=== PATIENT | male | born 1960 | race Caucasian/White ===

== ENCOUNTER 2020-08-26 11:56 | Emergency (ER) | payer OTHER, SELFPAY ==
[2020-08-26 12:10] VITALS: BP 199/129; PULSE 83; RESP 14; TEMP 36.7; O2SAT 95
--- NOTE | 2020-08-26 12:18 | DI.RAD.S_ITS ---
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 COMPARISON: None. FINDINGS: Bones: No fractures or dislocations. No suspicious bony lesions. Soft tissues: Soft tissue swelling and laceration along the radial aspect of the distal forearm. No radiopaque foreign body identified. IMPRESSION: Soft tissue injury as above. No fracture. No radiopaque foreign body. Dictated by: Lucas Hamlin M.D. on 08/26/2020 at 13:40 Approved by: Lucas Hamlin M.D. on 08/26/2020 at 13:42
[2020-08-26] MEDS: ACETAMINOPHEN 325 MG TABLET 975 MG PO (12:21)
--- NOTE | 2020-08-26 14:53 | ED_ITS ---
HPI - Skin/Abscess/Foreign Bdy <BEHZAD Alonso - Last Filed: 08/26/20 21:58> General Chief complaint: Skin/Abscess/Foreign Body Stated complaint: stump grinder operator external tool, wound right wrist Time Seen by Provider: 08/26/20 14:34 Source: patient Mode of arrival: Ambulatory Limitations: no limitations History of Present Illness HPI narrative: This is a 60-year-old male, former smoker, who has past medical history significant for MS presents to ED after the injury on dominant hand, right dorsal aspect on lower forearm from a tree stump grinder operator external tool at 1200. Patient is unsure of last tetanus immunization. Patient reports intact sensation and is able to move her fingers without difficulty. Related Data Previous Rx's Medication Instructions Recorded cephalexin [Keflex] 500 mg PO Q6H 7 Days #28 cap 08/26/20 Allergies Allergy/AdvReac Type Severity Reaction Status Date / Time No Known Drug Allergies Allergy Verified 08/26/20 12:17 Review of Systems <BEHZAD Alonso - Last Filed: 08/26/20 21:58> Review of Systems Narrative: General: Denies fever, chills, fatigue, malaise, sweats. Respiratory: Denies dyspnea, cough, wheezing, hemoptysis, sputum. Cardiovascular: Denies chest pain, palpitations, orthopnea, edema. Gastrointestinal: Denies nausea, vomiting, abdominal pain, diarrhea, constipation, melena. Musculoskeletal: See HPI Skin: See HPI Patient History <BEHZAD Alonso - Last Filed: 08/26/20 21:58> Social History Smoking Status: Former smoker Smoking Status: Former smoker alcohol intake frequency: 0-2 drinks per day Substance Use Type: does not use Exam <BEHZAD Alonso - Last Filed: 08/26/20 21:58> Narrative Exam Narrative: General appearance: well developed, well nourished, in no acute distress. Head: normocephalic, atraumatic, no scalp lesions, non-tender. ENT: Hearing grossly intact. Nose without bleeding, purulent discharge. Airway patent. Neck/Thyroid: neck supple, full range of motion, no visible masses or meningeal signs. No JVD, non-tender without lymphadenopathy. Skin: 4 x 5 cm large avulsion on right dorsal aspect of lower arm. Ligaments visualized with movement of right fingers. Warm and dry and appropriate color for ethnicity. Heart: no clubbing, no cyanosis, no edema. S1 and S2 normal. RRR w/o murmurs, clicks, or bruits. Lungs: Breathing even and unlabored. No stridor. No accessory muscles used. Able to speak in full sentences. Chest: normal shape and expansion. Abdomen: non-obese, non-distended. Neurologic: alert and oriented. Cognitive exam, [employer] and PNS grossly intact on informal exam. Psych: good eye contact, normal affect. Extremity: Right hand/fingers intact sensation and is able to flex, extend, supinate and pronate. Able to see intact tendons on right forearm. Initial Vital Signs Initial Vital Signs: Vital Signs Temperature 98.1 F 08/26/20 12:10 Pulse Rate 83 08/26/20 12:10 Respiratory Rate 14 08/26/20 12:10 Blood Pressure 199/129 H 08/26/20 12:10 Pulse Oximetry 95 08/26/20 12:10 <Jessie Barnes DO - Last Filed: 08/31/20 07:26> Initial Vital Signs Initial Vital Signs: Vital Signs Temperature 98.1 F 08/26/20 12:10 Pulse Rate 83 08/26/20 12:10 Respiratory Rate 14 08/26/20 12:10 Blood Pressure 199/129 H 08/26/20 12:10 Pulse Oximetry 95 08/26/20 12:10 Procedures <BEHZAD Alonso - Last Filed: 08/26/20 21:58> Laceration Repair Laceration 1: Site: upper extremity Side (If applicable): right Size (cm): 5 Description: flap and irregular Depth: simple, single layer and involves tendon Local Anesthetic: lidocaine 1% and with bicarb Amount of anesthesia used (mL): 6 Pre-repair: wound explored, irrigated extensively and extensive debridement Skin layer closed with: nylon Size (cm): 4-0 Number of sutures: 5 Orthopedic Splinting/Casting Injury #1: Side: right Upper Extremity Injury Location: forearm Upper Extremity Immobilizer: volar splint Post splinting neuro exam: intact Post splinting vascular exam: intact Placed by: Nursing Scores <HAMILTON AlonsoP - Last Filed: 08/26/20 21:58> GCS Angelique coma scale eye opening: Spontaneous Angelique coma scale verbal response: Orientated Angelique coma scale motor response: Obey commands Angelique coma scale total score: 15 qSOFA Altered Mental Status (GCS <15): No Respiratory rate greater than/equal to 22: No Systolic blood pressure less than or equal to 100: No qSOFA Total: 0 0-1 Not High Risk 1-3 High risk Course <Kofi RubalcavaHAMILTONP - Last Filed: 08/26/20 21:58> Orders Ordered: Discontinued Medications Acetaminophen (Tylenol) 975 mg PO NOW ONE Stop: 08/26/20 12:19 Last Admin: 08/26/20 12:21 Dose: 975 mg Documented by: PAU Bacitracin (Bacitracin) 2 applic TOP NOW ONE Stop: 08/26/20 16:18 Last Admin: 08/26/20 16:26 Dose: 2 applic Documented by: KANIKA Diphtheria/Tetanus/Acell Pertussis (Adacel) 0.5 ml IM .ONCE ONE Stop: 08/26/20 14:54 Last Admin: 08/26/20 15:18 Dose: 0.5 ml Documented by: KANIKA Cefazolin Sodium/Dextrose (Ancef) 1 gm in 50 mls @ 200 mls/hr IV NOW ONE Stop: 08/26/20 15:22 Last Infusion: 08/26/20 15:55 Dose: 0 mls/hr Documented by: Admin: 08/26/20 15:20 Dose: 200 mls/hr Documented by: KANIKA Lidocaine/Sodium Bicarbonate (Buffered Lidocaine 10 Ml Syr) 10 ml INJ NOW ONE Stop: 08/26/20 15:28 Last Admin: 08/26/20 15:35 Dose: 10 ml Documented by: KANIKA Consultations Consultation #1: Dr. Ellis consulted with physical findings, x-ray test results. He recommended IV antibiotic medications, tetanus update, volar splint and to follow-up at clinic for re-evaluation. Time: 15:34 Vital Signs Vital signs: Vital Signs - 8 hr 08/26/20 16:42 Pulse Rate 86 Respiratory Rate 20 Blood Pressure 182/115 H Pulse Oximetry 96 <Jessie Barnes DO - Last Filed: 08/31/20 07:26> Orders Ordered: Discontinued Medications Acetaminophen (Tylenol) 975 mg PO NOW ONE Stop: 08/26/20 12:19 Last Admin: 08/26/20 12:21 Dose: 975 mg Documented by: PAU Bacitracin (Bacitracin) 2 applic TOP NOW ONE Stop: 08/26/20 16:18 Last Admin: 08/26/20 16:26 Dose: 2 applic Documented by: KANIKA Diphtheria/Tetanus/Acell Pertussis (Adacel) 0.5 ml IM .ONCE ONE Stop: 08/26/20 14:54 Last Admin: 08/26/20 15:18 Dose: 0.5 ml Documented by: KANIKA Cefazolin Sodium/Dextrose (Ancef) 1 gm in 50 mls @ 200 mls/hr IV NOW ONE Stop: 08/26/20 15:22 Last Infusion: 08/26/20 15:55 Dose: 0 mls/hr Documented by: Admin: 08/26/20 15:20 Dose: 200 mls/hr Documented by: KANIKA Lidocaine/Sodium Bicarbonate (Buffered Lidocaine 10 Ml Syr) 10 ml INJ NOW ONE Stop: 08/26/20 15:28 Last Admin: 08/26/20 15:35 Dose: 10 ml Documented by: KANIKA Vital Signs Vital signs: Vital Signs - 8 hr 08/26/20 16:42 Pulse Rate 86 Respiratory Rate 20 Blood Pressure 182/115 H Pulse Oximetry 96 MDM - Skin/Abscess/Foreign Bdy <Kofi BravoBEHZAD Reilly - Last Filed: 08/26/20 21:58> Differential Diagnosis Differential diagnosis: Likely other (Fracture of forearm, skin avulsion, tendon/ligamentous injury) Medical Records Attestation: I reviewed the patient's medical records. Imaging Data XR Forearm RT: Radiologist's Impression: [address] [address] XRay Report Signed Patient: Jon Nash#: [id number] : 2Acct:[id number] Age/Sex: 60 / MDate of Service: 08/26/20 Loc: ED Accession Number: [id number] Procedure: XR forearm RT 2V Ordering Provider: Jessie Barnes D.O. 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 COMPARISON: None. FINDINGS: Bones: No fractures or dislocations. No suspicious bony lesions. Soft tissues: Soft tissue swelling and laceration along the radial aspect of the distal forearm. No radiopaque foreign body identified. IMPRESSION: Soft tissue injury as above. No fracture. No radiopaque foreign body. Dictated by: Lucas Hamlin M.D. on 08/26/2020 at 13:40 Approved by: Lucas Hamlin M.D. on 08/26/2020 at 13:42 [facility] Narrative Medical decision making narrative: This is a 60-year-old male who presents to ED with right, dominant hand, forearm injury and skin avulsion from a tree stump grinder operator external tool before coming into ED. patient has intact sensation distally. He was able to extend and flex thumb along for the rest for fingers. Concerned with Physical exam which appreciated possible partial tendon injury. X-ray test does not show fractures or dislocation with soft tissue swelling and laceration along the radial aspect of distal forearm. No obvious radial plaque foreign body appreciated. Patient was given 1 g of Ancef via IV. Tdap was updated today. Consulted with Dr. Ellis over the phone with physical exam and x-ray test results and was recommended to cleaned the wound, and repair if possible, apply affected arm on a volar splint and have the patient follow-up at the clinic since there is no emergent evaluation or surgical repair is needed. Patient discharged to home with Keflex 500 mg q.i.d. dose for 7 day course and advised to follow-up with [facility] orthopedist. Five sutures applied to approximate lacerations on the radial aspect site and dressed with bacitracin and non adherence gauze before splinted. Return precautions were discussed with patient on wound care, splint use, and follow-up and advised to take [id number] Tylenol and or Motrin as needed discomfort patient verbalized understanding in agreement with treatment plan. Dr. Barnes consulted and she kindly evaluated patient at bedside and recommended treatment plan follow-ups Discharge Plan Departure Patient Disposition: Home Clinical Impression: Injury of muscle or tendon of right forearm Avulsion of skin of right forearm Qualifiers: Encounter type: initial encounter Qualified Code(s): S51.801A - Unspecified open wound of right forearm, initial encounter Discharge Date/Time: 08/26/20 17:00 Instructions: DI for Laceration Repair Activity Restrictions/Additional Instructions: You have been diagnosed with [skin avulsion on right dominant forearm possibly with tendon injury. X-ray test does not show acute fractures of forearm. There are 5 sutures to approximate the wounds.]. What to do: *Take your medications as directed. Please start taking oral antibiotic medication Keflex before going to bed tonight. Please continue with this medication 4 times a day for next 7 days. *Follow up with your primary care provider/[facility] in 2-3 days, call for an appointment by calling the office on Saturday. Please use splint on affected arm. Let them know you were seen in the ED and that we asked you to be seen in follow up. If you are getting difficult time following up with [place] orthopedist, please contact emergency room. Please do not get your wound soaked in the water until suture removal. Keep your dressing intact under the splint. Please monitor for signs and symptoms for infection such as increasing redness, swelling, warmth, pain, fever, purulent discharge. If this occurs, please return to ED. Your suture should be removed [ 7-10 ] days. This can be done by your primary provider, walk-in clinic or here in ED. Please keep your wound clean, dry and intact all times. *Return to ED if you have any new, worsening, or concerning symptoms, such as [fever, purulent drainage, increasing pain, chest pain, breathing difficulty, unable to tolerate fluids, or any acute concerns]. Prescriptions: New cephalexin [Keflex] 500 mg capsule 500 mg PO Q6H 7 Days Qty: 28 RF: 0 Referrals: [facility] [Provider Group] Jaye Galeas MD [Primary Care Provider] - <Jessie Barnes DO - Last Filed: 08/31/20 07:26> Cosign ED Attending Jayne Attestation: I was immediately available in the department for consultation. This documentation has been reviewed, patient seen by myself as well and I agree with physicial exam findings with exposure of tendons of right forearm, suspect tendon to right thumb has a partial tear, unable to tell with tendons for fingers 2-5, patient neurovascularly intact on exam with muscle strength intact and agree with assessment and plan. Supervised by Jessie Barnes, DO
[2020-08-26] MEDS: TET,DIPH,PERTUSS(ACELL),VAC/PF 0.5 ML SYRINGE IM (15:18)
[2020-08-26] MEDS: CEFAZOLIN 1 GM/50 ML FROZ.PIGGY IV (15:20)
[2020-08-26] MEDS: LIDO 1%/SOD BICARB 8.4% (10ML) 10 ML SYRINGE INJ (15:35)
[2020-08-26] MEDS: BACITRACIN OINT 0.9 GM PCKT 2 APPLIC TOP (16:26)
[2020-08-26 16:42] VITALS: BP 182/115; PULSE 86; RESP 20; O2SAT 96
== END 2020-08-26 17:00 | disposition home or self-care (01) ==
PROVIDERS: Emergency Provider Nurse Practitioner Family; Family Provider Family Medicine; PCP Family Medicine
DX: S51.801A Unspecified open wound of right forearm, initial encounter (principal); S56.901A Unspecified injury of unspecified muscles, fascia and tendons at forearm level, right arm, initial encounter; W26.8XXA Contact with other sharp object(s), not elsewhere classified, initial encounter; Z23 Encounter for immunization
CPT/HCPCS: 12002; 29125; 73090; 90471; 96365; 99284; 90715

== ENCOUNTER → 2022-06-07 11:09 | Outpatient (CLI) | payer OTHER, SELFPAY ==
--- NOTE | 2022-06-07 | DI.RAD.S_ITS ---
PROCEDURE: XR LUMBAR SPINE MIN 4V INDICATIONS: LOW BACK PAIN TECHNIQUE: 5 views of the lumbar spine acquired, including flexion and extension views. COMPARISON: [facility], , L-SPINE 2-3 VIEWS, 01/22/2011, 9:55. FINDINGS: Bones: 5 nonrib-bearing vertebrae are present. There is normal bony alignment. No vertebral body compression fractures. No suspicious bony lesions. Lower lumbar facet arthropathy. Suspect canal stenosis. Multilevel disc space loss. Soft tissues: Overlying bowel gas pattern is normal. No suspicious soft tissue calcifications. Flexion/extension: No abnormal motion on flexion and extension. IMPRESSION: Lower lumbar facet arthropathy. Suspect canal stenosis. No abnormal motion on flexion and extension. Dictated by: Robin Chanel M.D. on 06/07/2022 at 16:06 Approved by: Robin Chanel M.D. on 06/07/2022 at 16:13
--- NOTE | 2022-06-07 | DI.CT.S_ITS ---
PROCEDURE: CT LUMBAR SPINE WO CON INDICATIONS: BACK PAIN/LUMBAR RADICULOPATHY, BULGE OF LUMBAR TECHNIQUE: Noncontrast 3 mm thick sections acquired from the T12 level to the sacrum. Sagittal and coronal reformats were constructed. For radiation dose reduction, the following was used: automated exposure control. COMPARISON: [facility], CR, XR LUMBAR SPINE MIN 4V, 06/07/2022, 11:21. [facility], CR, L-SPINE 2-3 VIEWS, 01/22/2011, 9:55. [facility], MR, L-SPINE WITHOUT CONTRAST, 02/01/2017, 12:13. FINDINGS: Image quality: Excellent. Bones: No acute vertebral body compression fractures. No suspicious lytic or blastic bony lesions. No pars defects. There is minimal retrolisthesis seen at L3-L4 and L4-L5. T12-L1: Normal. L1-L2: Mild loss of disc height is seen. Moderate generalized disc bulge is seen. Moderate bilateral neural foraminal narrowing can be seen, left worse than right. Mild to moderate central canal narrowing is seen. When comparison is made with the prior images, these findings are similar. L2-L3: Moderate loss of disc height is seen. At least moderate disc bulge is seen, which is eccentric to left. Mild facet joint hypertrophy is seen. There is at least moderate bilateral neural narrowing seen, left worse. Moderate central canal narrowing is seen. These imaging findings have progressed compared to the prior study. L3-L4: Moderate loss of disc height is seen. At least moderate disc bulge is seen. There is a superimposed central disc protrusion. Mild facet joint hypertrophy is seen. At least moderate bilateral neural foraminal narrowing can be seen, left worse than right. Moderate central canal narrowing is seen. When comparison is made with the prior images, these findings are similar. L4-L5: [id number] loss of disc height and disc signal can be seen on right side. At least moderate disc bulge is seen, which is eccentric to the right. There is a superimposed central disc protrusion. Mild facet joint hypertrophy is seen. There is moderate to severe bilateral neural foraminal narrowing seen. Moderate to severe central canal narrowing is seen, as on series 3, image 71. When comparison is made with the prior images, these findings are similar. L5-S1: The disc height is relatively well preserved. Mild generalized disc bulge is seen. There is a superimposed central disc protrusion. Moderate facet joint hypertrophy is seen. The there is moderate to severe bilateral neural foraminal narrowing seen. Mild central canal narrowing is seen. There is slight progression at this level compared to the prior. Soft tissues: No retroperitoneal masses or hematomas. Visualized aorta is normal in caliber. There is a moderate hiatal hernia. Colonic diverticulosis is seen, without findings of active diverticulitis. IMPRESSION: Multiple levels of lumbar spine degenerative change are seen, which are overall mildly progressed compared to the 2017 MRI. Incidental note is made of: Moderate hiatal hernia Diverticulosis, without active diverticulitis Dictated by: Juan Gillis M.D. on 06/07/2022 at 16:58 Approved by: Juan Gillis M.D. on 06/07/2022 at 17:02
== END ==
PROVIDERS: Family Provider Family Medicine; PCP Student in an Organized Health Care Education/Training Program; Referring Provider Nurse Practitioner Family; Visit Provider Nurse Practitioner Family
DX: M47.26 Other spondylosis with radiculopathy, lumbar region (principal); M47.27 Other spondylosis with radiculopathy, lumbosacral region; K44.9 Diaphragmatic hernia without obstruction or gangrene; K57.90 Diverticulosis of intestine, part unspecified, without perforation or abscess without bleeding; M54.9 Dorsalgia, unspecified
CPT/HCPCS: 72110; 72131